=== PATIENT | male | born 2000 | race Caucasian/White ===

== ENCOUNTER 2020-08-10 01:57 | Emergency (ER) | payer OTHER ==
[~2020-08-10] VITALS: Ht 188 cm; Wt 64.4 kg
[2020-08-10 02:05] VITALS: BP_SYST 129
[2020-08-10 02:24] LABS: BILIRUBIN,URINE NEGATIVE (NEGATIVE); BLOOD, URINE 3+ (NEGATIVE); CLARITY/URINE CLEAR (CLEAR); COLOR,URINE YELLOW (YELLOW); GLUCOSE,URINE NEGATIVE (NEGATIVE); KETONES,URINE NEGATIVE (NEGATIVE); LEUKOCYTE ESTERASE ,URINE NEGATIVE (NEGATIVE); NITRITE, URINE NEGATIVE (NEGATIVE); PROTEIN URINE TRACE (NEGATIVE); UROBILINOGEN,URINE 0.2 (0.2-1.0)
[2020-08-10 02:29] LABS: BACTERIA,URINE FEW /HPF (None Seen); RBC,URINE >100 /HPF (0-3); WBC,URINE 0-3 /HPF (0-3)
[2020-08-10] MEDS ORDERED: NACL 0.9% 1,000 ML IV ONE (03:30)
[2020-08-10] MEDS ORDERED: KETOROLAC TROMETHAMINE 30 MG VIAL IVP ONE (03:30)
[2020-08-10 04:29] LABS: HEMOGLOBIN 14.5 g/dL (14.0-18.0); NEUTROPHILS # (AUTO) 6.4 K/uL (1.8-7.7)
[2020-08-10 04:30] LABS: CALCIUM 9.2 mg/dL (8.4-11.0); CREATININE 0.86 mg/dL (0.55-1.30); POTASSIUM 3.9 mmol/L (3.5-5.1)
[2020-08-10 04:36] LABS: ALBUMIN 3.9 g/dL (3.4-4.8); TOTAL BILIRUBIN 0.6 mg/dL (0.0-1.0)
[2020-08-10 04:37] LABS: BASOPHILS % (AUTO) 0.6 % (0.0-2.0); EOSINOPHILS # (AUTO) 0.1 K/uL (0.0-0.4); EOSINOPHILS % (AUTO) 0.8 % (0.0-4.0); HEMATOCRIT 42.5 % (36-54); LYMPHOCYTES % (AUTO) 11.7 % (20.5-51.5); MEAN CORPUSCULAR HEMOGLOBIN 29 pg (27-31); MEAN CORPUSCULAR HGB CONC 34 % (32-36); MEAN CORPUSCULAR VOLUME 85 fL (79.0-98.0); MONOCYTES # (AUTO) 0.7 K/uL (0.0-1.0); MONOCYTES % (AUTO) 8.9 % (1.7-9.3); PLATELET COUNT (AUTO) 182 K/uL (130-430); RED BLOOD CELL COUNT(AUTO) 5.01 MIL/uL (4.2-6.2); WHITE BLOOD COUNT (AUTO) 8.3 K/uL (4.5-11.0)
[2020-08-10] MEDS ORDERED: HYDR-3917 PO (05:14)
[2020-08-10] MEDS ORDERED: TAMS-11 PO (05:14)
[2020-08-10] MEDS ORDERED: PHE25 PO (05:14)
[2020-08-10 05:23] VITALS: BP_SYST 124
[2020-08-11] MEDS ORDERED: CEFU250T85 PO (02:50)
== END 2020-08-10 05:24 | disposition home or self-care (01) ==
LOC: SED 01:57
DX: N23 Unspecified renal colic (principal); R31.9 Hematuria, unspecified
CPT/HCPCS: 36415; 80053; 81000; 85025; 96361; 96374; 99284; J1885; J7030

== ENCOUNTER 2020-08-10 21:02 | Emergency (ER) | payer OTHER, SELFPAY ==
[~2020-08-10] VITALS: Ht 188 cm; Wt 66.7 kg
[2020-08-10 21:02] VITALS: BP_SYST 136
[~2020-08-10 21:02] MED LIST: HYDR-3917 PO; PHE25 PO; TAMS-11 PO
--- NOTE | 2020-08-10 21:10 | NUR ---
PT TO BED 8 FOR EVALUATION. REPORT GIVEN TO JOHN YUAN WHO WILL ASSUME CARE.
--- NOTE | 2020-08-10 21:11 | NUR ---
Came in ER ambulatory from home this 20 year old male, AAOX4, breathing spontaneosuly at room air, not in distress noted. With chief complaints of left flank pain, 2nd visit in ER, discharge today at 5AM with pain reliever meds but no relief at home. History of kidney stone, no known allergy.
--- NOTE | 2020-08-10 21:19 | NUR ---
Seen and examined by Dr. Riggs, ER Attending
[2020-08-10] MEDS ORDERED: NACL 0.9% 1,000 ML IV ONE (22:00)
[2020-08-10] MEDS ORDERED: ONDANSETRON HCL 4 MG/2 ML VIAL IVP ONE (22:00)
[2020-08-10] MEDS ORDERED: KETOROLAC TROMETHAMINE 30 MG VIAL IVP ONE (22:00)
--- NOTE | 2020-08-10 22:01 | NUR ---
# 18 gauge angiocath placed to rt fa. Use of asceptic technique. Opsite placed over site. Blood return noted. Blood for lab drawn from site. Flushed with 10 cc of normal saline. No evidence of infiltration noted. Patient tolerated well.
[2020-08-10 22:17] LABS: BASOPHILS % (AUTO) 0.3 % (0.0-2.0); EOSINOPHILS # (AUTO) 0.1 K/uL (0.0-0.4); EOSINOPHILS % (AUTO) 0.6 % (0.0-4.0); HEMATOCRIT 41.2 % (36-54); HEMOGLOBIN 13.9 g/dL (14.0-18.0); LYMPHOCYTES % (AUTO) 10.2 % (20.5-51.5); MEAN CORPUSCULAR HEMOGLOBIN 29 pg (27-31); MEAN CORPUSCULAR HGB CONC 34 % (32-36); MEAN CORPUSCULAR VOLUME 86 fL (79.0-98.0); MONOCYTES # (AUTO) 0.8 K/uL (0.0-1.0); MONOCYTES % (AUTO) 8.2 % (1.7-9.3); NEUTROPHILS % (AUTO) 80.7 % (40.0-70.0); PLATELET COUNT (AUTO) 142 K/uL (130-430); RED BLOOD CELL COUNT(AUTO) 4.81 MIL/uL (4.2-6.2); RED CELL DISTRIBUTION WIDTH 13.1 % (9.0-15.0); WHITE BLOOD COUNT (AUTO) 9.9 K/uL (4.5-11.0)
[2020-08-10 22:24] LABS: BILIRUBIN,URINE NEGATIVE (NEGATIVE); BLOOD, URINE 3+ (NEGATIVE); CLARITY/URINE CLOUDY (CLEAR); COLOR,URINE YELLOW (YELLOW); GLUCOSE,URINE NEGATIVE (NEGATIVE); KETONES,URINE NEGATIVE (NEGATIVE); LEUKOCYTE ESTERASE ,URINE NEGATIVE (NEGATIVE); NITRITE, URINE NEGATIVE (NEGATIVE); PH,URINE 6.5 (5.0-8.0); PROTEIN URINE TRACE (NEGATIVE); UROBILINOGEN,URINE 0.2 (0.2-1.0)
[2020-08-10 22:29] LABS: CALCIUM 8.7 mg/dL (8.4-11.0); CREATININE 1.27 mg/dL (0.55-1.30); POTASSIUM 4.2 mmol/L (3.5-5.1)
[2020-08-10 22:34] LABS: ALBUMIN 3.7 g/dL (3.4-4.8); TOTAL BILIRUBIN 0.6 mg/dL (0.0-1.0)
[2020-08-10 22:35] LABS: BACTERIA,URINE FEW /HPF (None Seen); RBC,URINE >100 /HPF (0-3); WBC,URINE 0-3 /HPF (0-3)
--- NOTE | 2020-08-10 23:11 | NUR ---
To CT scan department per wheelchair in stable condition accompanied by audio visual tech
--- NOTE | 2020-08-10 23:25 | NUR ---
Back to bed, kept comfortable
[2020-08-10] MEDS ORDERED: cefTRIAXone 1 GM in D5W 50 ML IV ONE (23:30)
--- NOTE | 2020-08-10 23:55 | NUR ---
Re-assesed by Dr. Moya
--- NOTE | 2020-08-11 00:40 | NUR ---
Confirmed with Dr. Moya if he wants blood culture prior giving Ceftriaxone IV, according to him no need.
[2020-08-11] MEDS ORDERED: cefTRIAXone 1 GM VIAL ONE (00:44)
--- NOTE | 2020-08-11 00:45 | NUR ---
Medications given as ordered, health teaching provided and verbalized understanding
--- NOTE | 2020-08-11 02:01 | NUR ---
Still awaiting for acceptance from other hospital, no acceptance due to insurance issue
[2020-08-11] MEDS ORDERED: CEFU250T85 PO (02:50)
[2020-08-11 03:01] VITALS: BP_SYST 122
--- NOTE | 2020-08-11 03:01 | NUR ---
Patient given written and verbal discharge instructions and verbalizes understanding. ER MD discussed with patient the results and treatment provided. Patient in stable condition. ID arm band removed. IV catheter removed intact and dressing applied, no active bleeding. Rx of Cefuroxime given. Patient educated on pain management and to follow up with PMD. Pain Scale 0/10. Opportunity for questions provided and answered. Medication side effect fact sheet provided.
== END 2020-08-11 03:01 | disposition home or self-care (01) ==
LOC: SED 21:02
DX: N13.2 Hydronephrosis with renal and ureteral calculous obstruction (principal); N13.9 Obstructive and reflux uropathy, unspecified; Z20.822 Contact with and (suspected) exposure to COVID-19; Z79.899 Other long term (current) drug therapy
CPT/HCPCS: 36415; 74176; 76376; 80053; 81000; 85025; 87426; 96361; 96365; 96375; 99284; J0696; J1885; J2405; J7030